=== PATIENT | female | born 1940 | race Caucasian/White ===

== ENCOUNTER 2017-07-12 12:17 | Emergency (ER) | payer OTHER ==
[~2017-07-12] VITALS: Ht 162.6 cm; Wt 61.2 kg
[~2017-07-12 12:17] MED LIST: ALDACTONE25 MG PO; ALDACTONE50 MG PO; ASPIRIN EC325 MG PO; ASPIRIN325 MG PO; ASPIRIN81 M2 PO; AUGMENTIN875 MG PO; CALMOSEPTINE O3.5 GM TP; CELEXA10 MG PO; CITALOPRAM HBR20 MG PO; CLARITIN,ALAVAR10 MG PO; COMBIVENT RESPIM4 GM IH; CONSTULOSE10 GM/15 M PO; COUGH SYRU100 MG/5 M PO; COUMADIN2 MG PO; COUMADIN4 MG PO; CRESTOR10 MG PO; CYANOCOBALAM1000 MCG PO; DOCU LIQUI50 MG/5 ML PO; DUONEB 2.5-0.5 M3 ML AEROSOL; ESOMEPRAZOLE MA40 MG PO; FERROUS SULFAT325 MG PO; FOLIC ACID1 MG PO; FUROSEMIDE20 MG PO; FUROSEMIDE40 MG PO; GUIATUSS100 MG/5 M PO; K-DUR20 MEQ PO; LIPITOR20 MG PO; LORATADINE10 M2 PO; MIRALAX17 GM PO; MIRTAZAPINE15 MG PO; MULTI-DELYN473 M1 PO; NOVOLOG PE100 UNITS/ SC; NYSTATIN15 GM TP; OLANZAPINE10 MG PO; OLANZAPINE20 MG PO; PANTOPRAZOLE SO40 MG PO; POLYETHYLENE GL17 GM PO; PRAVASTATIN SOD20 MG PO; PRAVASTATIN SOD80 MG PO; PREDNISONE10 MG PO; PREDNISONE20 MG PO; QUESTRAN POWDE378 GM PO; REMERON15 M2 PO; ROBAFEN CF SYR118 M1 PO; SERTRALINE HCL25 MG PO; SERTRALINE HCL50 MG PO; SPIRONOLACTONE25 MG PO; TYLENOL REGULA325 MG PO; VITAMIN B-121000 MC1 SL; WARFARIN SODIUM4 MG PO; ZETIA10 MG PO; ZOLOFT25 MG PO; ZOLOFT50 MG PO; ZOSYN 3.3753.375 GM IV; ZYPREXA10 MG PO; ZYPREXA20 MG PO
[2017-07-12 13:32] LABS: BASOPHIL (%) 0.4 % (0-1); EOSINOPHIL (%) 1.7 % (0-5); EOSINOPHIL COUNT 0.1 K/uL (0-0.3); IMMATURE GRANULOCYTE (%) 0.2 % (0.0-0.7); LYMPHOCYTE (%) 21.9 % (15-42); LYMPHOCYTE COUNT 1.2 K/uL (1.0-2.8); MCH 30.9 PG (29.0-34.0); MCHC 32.6 G/DL (30.0-36.0); MCV 94.9 FL (83-99); MONOCYTE (%) 8.6 % (3-12); MONOCYTE COUNT 0.5 K/uL (0-0.8); NEUTROPHIL (%) 67.2 % (45-76); NEUTROPHIL COUNT 3.5 K/uL (1.8-6.4); PLATELET COUNT 202 K/uL (156-360); RBC DIS.WIDTH-CV 14.5 % (11.8-14.6); RBC DIS.WIDTH-SD 50.3 % (39-53); RED BLOOD COUNT 4.53 M/uL (3.80-5.20); WHITE BLOOD COUNT 5.3 K/uL (4.1-10.2)
[2017-07-12 13:38] LABS: INTER. NORMALIZED RATIO 2.1
[2017-07-12 13:40] LABS: PTT 39.3 SEC (25-37)
[2017-07-12 13:48] LABS: ALBUMIN 4.2 g/dL (3.2-4.8); CHLORIDE 107 mEq/L (99-109); POTASSIUM 4.1 mEq/L (3.7-5.4); SODIUM 141 mEq/L (136-147)
[2017-07-12 13:49] LABS: MAGNESIUM 2.4 mg/dL (1.3-2.7)
[2017-07-12 13:50] LABS: GLUCOSE 87 mg/dL (70-99); TOTAL PROTEIN 7.5 g/dL (6.4-8.3)
[2017-07-12 13:52] LABS: TOTAL BILIRUBIN 0.5 mg/dL (0.0-1.0)
[2017-07-12 13:54] LABS: ALKALINE PHOSPHATASE 89 IU/L (3-129); CREATININE 1.5 mg/dL (0.6-1.3); GFR ESTIMATE (CALCULATED) 36 mL/min/
[2017-07-12 13:55] LABS: UREA NITROGEN (BUN) 21 mg/dL (9-23)
[2017-07-12 13:56] LABS: AST (GOT) 20 IU/L (2-34)
[2017-07-12 13:57] LABS: ALT (GPT) 21 IU/L (3-49)
[2017-07-12 14:01] LABS: TROP-I INTERPRETATION NEGATIVE; TROPONIN-I 0.02 ng/mL (0.0-0.30)
[2017-07-12 14:54] LABS: APPEARANCE CLEAR ((CLEAR)); BILIRUBIN NEGATIVE; BLOOD NEGATIVE; COLOR YELLOW ((YELLOW)); GLUCOSE (STRIP) NEGATIVE; KETONES NEGATIVE; LEUKOCYTES SMALL; NITRITE NEGATIVE; PROTEIN (STRIP) NEGATIVE; SPECIFIC GRAVITY 1.008 (1.000-1.030); UROBILINOGEN 0.2 MG/DL (0.2-1.0)
[2017-07-12 15:11] LABS: BACTERIA NONE SEEN /HPF; EPITHELIAL CELLS RARE /HPF; HYALINE CASTS 0-5 /LPF; MUCUS TRACE /LPF; RED BLOOD CELLS 0-5 /HPF (0-5); UCUL ADDED? YES; WHITE BLOOD CELLS 20-30 /HPF (0-5)
[2017-07-12] MEDS ORDERED: KEFLEX500 MG PO (16:09)
[2017-07-12] MEDS ORDERED: ZOFRAN ODT4 MG PO (16:12)
[2017-07-12 16:54] VITALS: BP 116/79
== END 2017-07-12 19:14 | disposition home or self-care (01) ==
LOC: EME → EDBD 12:17 → EME 19:14
PROVIDERS: Emergency Medicine
DX: N39.0 Urinary tract infection, site not specified (principal); E86.0 Dehydration; G35 Multiple sclerosis; I10 Essential (primary) hypertension; E78.5 Hyperlipidemia, unspecified; F32.9 Major depressive disorder, single episode, unspecified; Z87.891 Personal history of nicotine dependence; Z86.718 Personal history of other venous thrombosis and embolism; Z79.01 Long term (current) use of anticoagulants; Z88.5 Allergy status to narcotic agent
CPT/HCPCS: 70450; 71045; 80053; 81003; 83605; 83735; 84484; 85025; 85610; 85730; 87086; 93005; 99281; 99285; J7040